=== PATIENT | female | born 2000 | race Two or more races ===

== ENCOUNTER 2025-05-02 23:31 | Emergency (ER) | payer BC, OTHER ==
[~2025-05-02] VITALS: Ht 162.6 cm; Wt 84.0 kg
--- NOTE | 2025-05-02 23:59 | ED.PDOC ---
History of Present Illness HPI Comments 24 year-old female presents to the ED with a chief complaint of epigastric / RUQ abdominal pain with associated symptoms of N/V as of X2 hours ago. Patient states epigastric abdominal pain is a 10/10, constant, with no alleviating factors. Patient reports experiencing similar symptoms last after ea ting spicy pasta; symptoms alleviated with emesis. Patient has no further complaints or modifying factors at this time. Patient denies symptoms of hematemesis, dizziness, weakness, hematuria, or chest pain. REVIEW OF SYSTEMS: General: No fever, no chills, or fatigue HEENT: No sore throat, no earache, no congestion, no neck pain. Cardiac: No chest pain. No palpitations. Lungs: No shortness of breath, no cough. GI: (+) nausea, (+) vomiting, no diarrhea, no constipation, (+) abdominal pain : No dysuria, frequency, or urgency. No hematuria. Musculoskeletal: No joint pain , no joint swelling, no extremity edema. Skin: No rash, no itching. Neuro: No headache, no dizziness, no weakness (And as sated in HPI) PHYSICAL EXAM: General: Awake, alert and oriented. No acute distress. Skin: Skin in warm, dry and intact. Appropriate color for ethnicity. HEENT: The head is normocephalic and atraumatic. Conjunctivae are clear without exudates or hemorrhage. Sclera is non-icteric. Eyelids are normal in appearance without swelling or lesions. Oral mucosa is pink and moist Neck: The neck is supple with normal range of motion. No JVD. Cardiac: Heart rate and rhythm are normal. No murmurs, gallops, or rubs are auscultated. Respiratory: No signs of respiratory distress. Lung sounds are clear in all lobes bilaterally without rales, rhonchi, or wheezes. Abdominal: Epigastric Abdominal tenderness. No guarding, rigidity or rebound. Bowel sounds are present and normoactive in all four quadrants. Extremities: Lower extremities without edema. Neurological: The patient is awake, alert and oriented to person, place, and time with normal speech. Speech is clear. There is no facial asymmetry. Psychiatric: Appropriate mood and affect. Good judgement and insight. Chief Complaint: Abdominal Pain Time Seen by MD: 00:03 Reviewed Notes: Medications, Allergies Allergies: Coded Allergies: NO KNOWN ALLERGIES (Unverified , 05/02/25) Information Source: Patient Mode of Arrival: Ambulatory Past Medical History PAST MEDICAL HISTORY: Denies Surgical History: ORDER FULFILLMENT SPECIALIST History: No Pertinent ORDER FULFILLMENT SPECIALIST History Social History Smoker: Non-Smoker Alcohol: Denies ETOH Use Drugs: Denies Drug Use Lives In: Home Was a procedure done? Was a procedure done?: No Differential Dx Considerations may include: Differential diagnoses considered include: Abdominal aortic aneurysm, SD, esophageal rupture, intestinal obstruction, mesenteric ischemia, perforated viscus or solid organ rupture, CHF with hepatomegaly, pneumonia, abscess, appendicitis, biliary disease, diverticulitis, gastritis, gastroenteritis, hepatitis, hernia, inflammatory bowel disease, pancreatitis, peptic ulcer disease, urinary tract infection, ureteral colic, constipation, GERD, irritable syndrome, abdominal wall pain, nonspecific abdominal pain, herpes zoster, nephrolithiasis. X-Ray, Labs, Meds, VS Vital Signs Date Time Temp Pulse Resp B/P (MAP) Pulse Ox O2 Delivery O2 Flow Rate FiO2 05/03/25 01:37 98.2 60 18 113/64 (80) 98 98.2 05/03/25 01:37 60 18 98 Room Air* 0 21 05/03/25 01:23 66 18 93/62 05/02/25 23:33 97.6 78 20 128/95 97 97.6 Lab Test 05/03/25 00:10 Range/Units White Blood Count 11.3 H 4.4-10.8 10^3/uL Red Blood Count 5.00 4.0-5.20 10^6/uL Hemoglobin 14.1 12.2-16.2 g/dL Hematocrit 42.9 36.0-46.0 % Mean Corpuscular Volume 85.7 80.0-100.0 fL Mean Corpuscular Hemoglobin 28.1 28.0-32.0 pg Mean Corpuscular Hemoglobin Concent 32.8 32.0-36.0 g/dL Red Cell Distribution Width 13.4 11.8-14.3 % Platelet Count 296 140-450 10^3/uL Mean Platelet Volume 8.8 6.9-10.8 fL Neutrophils (%) (Auto) 61.9 37.0-80.0 % Lymphocytes (%) (Auto) 27.8 10.0-50.0 % Monocytes (%) (Auto) 6.9 0.0-12.0 % Eosinophils (%) (Auto) 3.0 0.0-7.0 % Basophils (%) (Auto) 0.4 0.0-2.0 % Neutrophils # (Auto) 7.0 1.6-8.6 10 ^3/uL Lymphocytes # (Auto) 3.1 0.4-5.4 10 ^3/uL Monocytes # (Auto) 0.8 0-1.3 10 ^3/uL Eosinophils # (Auto) 0.3 0-0.8 10 ^3/uL Basophils # (Auto) 0.1 0-0.2 10 ^3/uL Nucleated Red Blood Cells 0.1 % Sodium Level 140 136-145 mmol/L Potassium Level 3.9 3.5-5.1 mmol/L Chloride Level 101 98-107 mmol/L Carbon Dioxide Level 27 20-31 mmol/L Anion Gap 12 5-15 Blood Urea Nitrogen 10 9-23 mg/dL Creatinine 0.80 0.550-1.02 mg/dL Glomerular Filtration Rate Calc 104 >90 mL/min BUN/Creatinine Ratio 12.5 10.0-20.0 Serum Glucose 120 H 74-106 mg/dL Lactic Acid Level 1.3 0.4-2.0 mmol/L Calcium Level 9.9 8.7-10.4 mg/dL Total Bilirubin 0.4 0.2-1.0 mg/dL Aspartate Amino Transferase (AST) 48 H 13-40 U/L Alanine Aminotransferase (ALT) 49 H 7-40 U/L Alkaline Phosphatase 96 46-116 U/L Total Protein 8.2 5.7-8.2 g/dL Albumin 4.7 3.2-4.8 g/dL Lipase 52 12-53 U/L Current Medications Medications (Trade) Dose Ordered Sig/Leroy Route Start Time Stop Time Status Last Admin Ondansetron HCl (Zofran) 4 mg ONCE ONCE IV 05/03/25 01:00 05/03/25 01:01 DC 05/03/25 01:23 Morphine Sulfate 4 mg ONCE ONCE IV 05/03/25 01:15 05/03/25 01:16 DC 05/03/25 01:23 Time of 1ST Reevaluation: 23:58 Reevaluation 1ST: Unchanged Patient Education/Counseling: Need For Follow Up Family Education/Counseling: No Family Present SEPSIS Sepsis Screen Date sepsis recognized/suspect: May 02, 2025 Time Sepsis recognized/suspect: 2336 Recent Procedure: Yes (C SECTION X 3 MO ) On Antibiotic Therapy: No Respiratory Rate >20: No Heart Rate >90: No Temp<36 C (96.8 F) or >38.3 C: No SBP <90 or MAP <65 mmHG: No New Acute Mental Status Change: No Is the patient on CPAP, BIPAP,: No Physician Orders Urinalysis (05/02/25 23:59) Test, Urine (05/02/25 23:59) Gallbladder (05/03/25 00:48) Vital Signs Date Time Temp Pulse Resp B/P (MAP) Pulse Ox O2 Delivery O2 Flow Rate FiO2 05/03/25 01:37 98.2 60 18 113/64 (80) 98 98.2 05/03/25 01:37 60 18 98 Room Air* 0 21 05/03/25 01:23 66 18 93/62 05/02/25 23:33 97.6 78 20 128/95 97 97.6 Laboratory Tests Test 05/03/25 00:10 Lactic Acid Level 1.3 mmol/L (0.4-2.0) White Blood Count 11.3 10^3/uL (4.4-10.8) H Medications Medications Dose Ordered Sig/Leroy Route Start Time Stop Time Status Last Admin Dose Admin Morphine Sulfate 4 mg ONCE ONCE IV 05/03/25 01:15 05/03/25 01:16 DC 05/03/25 01:23 Ondansetron HCl 4 mg ONCE ONCE IV 05/03/25 01:00 05/03/25 01:01 DC 05/03/25 01:23 Departure 1 Departure Time of Disposition: 03:12 Impression: Primary Impression: Cholelithiasis Disposition: 01 HOME / SELF CARE / HOMELESS Condition: Stable Additional Instructions: ED DISCHARGE INSTRUCTIONS Instructions: Please read all instructions provided in this packet carefully. Although you have been discharged from the Emergency Department, this does not mean that you have a "clean bill of health". No definitive diagnosis for your symptoms has been made today. It is possible that you are in the process of developing a serious illness. This is why you must return to the ED without fail if any new or worsening symptoms (especially if your symptoms include chest pain, trouble breathing, abdominal pain, fever, headache, confusion, trouble seeing, or trouble walking) It is also very important that you see a primary care provider (PCP) within the next 3-5 days to follow up. If you are unable to get an appointment, return to the ED for re-evaluation. Gallstones: Care Instructions Gallstones are stones made of cholesterol and other substances that form in the gallbladder. The gallbladder stores bile. Bile helps the body digest food. Gallstones also can form in the bile duct. This is the tube that carries bile from the gallbladder and the liver to the small intestine. Gallstones that block the gallbladder from emptying or get stuck in the bile duct can cause pain and infection. Sometimes a thick material called "sludge" forms instead of stones. This can cause the same problems as gallstones. The doctor may have given you medicine for pain. You may need follow-up zaina ointments for more testing and treatment. If you continue to have problems, you may need surgery to remove your gallbladder. The doctor has checked you carefully, but problems can develop later. If you notice any problems or new symptoms, get medical treatment right away . Follow-up care is a mayorga part of your treatment and safety. Be sure to make and go to all appointments, and call your doctor if you are having problems. It's also a good idea to know your test results and keep a list of the medicines you take. How can you care for yourself at home? Rest until you feel better. Be safe with medicines. Read and follow all instructions on the label. If the doctor gave you a prescription medicine for pain, take it as prescribed. If you are not taking a prescription pain medicine, ask your doctor if you can take an [id number] medicine. Avoid foods that cause symptoms, especially fatty foods. These can make the gallbladder tighten and cause pain. When should you call for help? Call your doctor now or seek immediate medical care if: You are vomiting. You have new or worse belly pain. You have a fever. You cannot pass stools or gas. Watch closely for changes in your health, and be sure to contact your doctor if you have any problems. Credits for Gallstones: Care Instructions Current as of: March 05, 2024 Author: [employer] Staff Clinical Review Board All [employer] education is reviewed by a team that includes physicians, nurses, advanced practitioners, registered dieticians, and other healthcare professionals. e-Prescriptions Acetaminophen (Acetaminophen) 500 Mg Tab 1-2 TAB PO Q6HPRN PRN for 5 Days, #15 TAB Prov: CLINT KLEIN MD 05/03/25 Comments Patient was offered admission for further treatment, observation and evaluation. Discussed risks, benefits and return precautions with the patient. The patient is declined admission and is requesting to be discharged home to follow up with the primary care provider as an outpatient. Critical Care Note Critical Care Time?: No Stability Stability form required: No Heart Score Heart Score: Heart Score Response (Comments) Value History N/A 0 EKG N/A 0 Age N/A 0 Risk Factors N/A 0 Troponin N/A 0 Total 0 I personally scribed for CLINT KLEIN MD ([email or web address]) on 05/02/25 at 23:59. Electronically submitted by Jazz Allen ([employer]). I personally scribed for CLINT KLEIN MD ([email or web address]) on 05/03/25 at 00:34. Electronically submitted by Jazz Allen ([employer]). I personally scribed for CLINT KLEIN MD ([email or web address]) on 05/03/25 at 00:52. Electronically submitted by Jazz Allen ([employer]). I personally scribed for CLINT KLEIN MD ([email or web address]) on 05/03/25 at 00:52. Electronically submitted by Jazz Allen ([employer]). CLINT KLEIN MD May 02, 2025 23:59
[2025-05-03 00:52] LABS: Hematocrit 42.9 % (36.0-46.0); Hemoglobin 14.1 g/dL (12.2-16.2); Mean Corpuscular Hemoglobin 28.1 pg (28.0-32.0); Mean Corpuscular Volume 85.7 fL (80.0-100.0); Nucleated Red Blood Cells % 0.1 %
[2025-05-03 01:17] LABS: Albumin 4.7 g/dL (3.2-4.8); Alkaline Phosphatase 96 U/L (46-116); Anion Gap 12 (5-15); BUN/Creatinine Ratio 12.5 (10.0-20.0); Blood Urea Nitrogen 10 mg/dL (9-23); Calcium 9.9 mg/dL (8.7-10.4); Carbon Dioxide 27 mmol/L (20-31); Chloride 101 mmol/L (98-107); Lipase 52 U/L (12-53); Potassium 3.9 mmol/L (3.5-5.1); Sodium 140 mmol/L (136-145); Total Protein 8.2 g/dL (5.7-8.2)
[2025-05-03 01:18] LABS: Bilirubin, Total 0.4 mg/dL (0.2-1.0)
[2025-05-03 01:21] LABS: Alanine Aminotransferase 49 U/L (7-40); Glucose 120 mg/dL (74-106)
[2025-05-03] MEDS: MORPHINE SULFATE INJ 2 MG/ml SYRG IV ONE (01:22)
[2025-05-03] MEDS: MORPHINE SULFATE 4 MG/ML SYR/VIAL IV ONE (01:23)
[2025-05-03] MEDS: ONDANSETRON HCL 4 MG/2 ML VIAL IV ONE (01:23)
[2025-05-03 01:37] VITALS: BP 113/64; PULSE 60; RESP 18; TEMP 98.2; O2SAT 98
--- NOTE | 2025-05-03 02:36 | DVH ---
INDICATION: Epigastric pain TECHNIQUE: Multiple real-time sonographic images were obtained of the right upper quadrant. COMPARISON: None FINDINGS: The liver demonstrates diffusely increased echotexture without focal mass lesions. The liver measures 18.9 cm. Normal hepatopetal portal venous flow identified. No evidence of pleural effusion or abdominal ascites. There is no intrahepatic or extrahepatic ductal dilatation. The common duct measures 0.6 cm. Moderate gallbladder distention with calcified gallstone measuring 1.4 x 1.1 x 0.4 cm. The gallbladder wall measures 0.2 cm and is within normal limits. Negative sonographic guzman's sign. The right kidney measures 9.7 cm. The right kidney is normal in contour, size, and shape. The echogenicity is normal. There is no hydronephrosis. The pancreas is not well visualized due to overlying bowel gas. IMPRESSION: 1. Cholelithiasis with moderate gallbladder distention. No sonographic evidence of acute cholecystitis. 2. Hepatic steatosis and hepatomegaly.
[2025-05-03] MEDS ORDERED: ACET500T58 PO (03:13)
== END 2025-05-03 04:00 | disposition home or self-care (01) ==
LOC: ER 23:31
DX: K80.20 Calculus of gallbladder without cholecystitis without obstruction (principal)
CPT/HCPCS: 36415; 76705; 80053; 83605; 83690; 85025; 96374; 96375; 99285; J2270; J2405